=== PATIENT | male | born 1995 | race Hispanic/Latino ===

== ENCOUNTER 2019-06-26 17:31 | Emergency (ER) | payer BC, OTHER ==
[~2019-06-26] VITALS: Ht 180.3 cm; Wt 90.7 kg
[~2019-06-26 17:31] MED LIST: no meds
[2019-06-26] MEDS ORDERED: ACETAMINOPHEN 325 MG TAB PO ONE (17:45)
--- NOTE | 2019-06-26 18:31 | Diagnostic Imaging Report ---
EXAMINATION: Head CT HISTORY: Headache. COMPARISON: None. TECHNIQUE: Multidetector axial images were obtained without contrast from the foramen magnum to the vertex . The images were reconstructed using brain and bone algorithms. Thin section brain images were reformatted into coronal and sagittal planes. Image quality: Motion/streaking artifact limits the evaluation of the skull base and posterior cranial fossa. Dose modulation, iterative reconstruction, and/or weight based adjustment of the mA/kV was utilized to reduce the radiation dose to as low as reasonably achievable. FINDINGS: Parenchyma: 1. No abnormal densities. 2. No mass or hemorrhage. No CT evidence of acute territorial vascular insult. Extra-axial spaces:No abnormal density. No extra-axial fluid collections Brain volume: Normal for age. Ventricles: No hydrocephalus or displacement. Arteries: No density suggestive of thrombus. Dural sinuses: No abnormal density. Extra-axial spaces: No abnormal density. Foramen magnum: No mass, Chiari malformation, or basilar invagination. Sella: No obvious mass. Paranasal/mastoid sinuses: Imaged portions unremarkable. Skull/Scalp: No fractures. Non-specific lucency of the diploic space in the parietal bones near the vertex, without lytic or blastic lesions may be related to red marrow conversion. IMPRESSION: Normal acute intracranial abnormalities. Signed by: Dr. Archana Bryant M.D. on 06/26/2019 6:28 PM
== END 2019-06-26 19:05 | disposition home or self-care (01) ==
LOC: ER 17:31
DX: G43.019 Migraine without aura, intractable, without status migrainosus (principal); B34.9 Viral infection, unspecified
CPT/HCPCS: 70450; 99283